=== PATIENT | female | born 1955 | race Caucasian/White ===

== ENCOUNTER 2017-03-06 15:34 | Inpatient (IN) | payer OTHER, MEDICARE ==
[~2017-03-06] VITALS: Ht 165.1 cm; Wt 79.6 kg
[~2017-03-06 15:34] MED LIST: AMBIEN5 MG PO; BENICAR20 MG PO; CYMBALTA60 MG PO; Cymbalta PO; DAILY VITAMIN1 EAC8 PO; DIOVAN80 MG PO; LODINE500 MG PO; PRILOSEC40 MG PO; VICODIN 5-3001 EACH PO; WELLBUTRIN XL300 MG PO; XANAX0.5 MG PO; ZOFRAN4 MG PO
[2017-03-06 16:32] LABS: HEMATOCRIT 37.4 % (36.0-46.0); MCH 24.5 PG (29.0-34.0); MCHC 32.4 G/DL (30.0-36.0); MCV 75.7 FL (83-99); MEAN PLAT.VOLUME 8.5 uM^3 (9.5-12.4); PLATELET COUNT 613 K/uL (156-360); RBC DIS.WIDTH-CV 17.2 % (11.8-14.6); RBC DIS.WIDTH-SD 46.6 % (39-53); RED BLOOD COUNT 4.94 M/uL (3.80-5.20)
[2017-03-06 16:32] LABS: CREATININE 4.1 mg/dL (0.6-1.3); POTASSIUM 4.3 mEq/L (3.7-5.4)
[2017-03-06 16:44] LABS: CHLORIDE 88 mEq/L (99-109); POTASSIUM 4.3 mEq/L (3.7-5.4)
[2017-03-06 16:47] LABS: INTER. NORMALIZED RATIO 1.1; PROTHROMBIN TIME 10.9 (9.2-11.2); SODIUM 121 mEq/L (136-147)
[2017-03-06 16:48] LABS: ANION GAP 19 MEQ/L (2-14); TOTAL BILIRUBIN 1.1 mg/dL (0.0-1.0)
[2017-03-06 16:50] LABS: ALKALINE PHOSPHATASE 85 IU/L (3-129)
[2017-03-06 16:51] LABS: GFR ESTIMATE (CALCULATED) 12 mL/min/
[2017-03-06 16:52] LABS: DIRECT BILIRUBIN 0.4 mg/dL (0.0-0.3); UREA NITROGEN (BUN) 31 mg/dL (9-23)
[2017-03-06 16:54] LABS: LIPASE 95 U/L (1.0-51.0)
[2017-03-06 17:05] LABS: TROP-I INTERPRETATION NEGATIVE; TROPONIN-I < 0.01 ng/mL (0.0-0.30)
[2017-03-06 17:07] LABS: GLUCOSE 135 mg/dL (70-99)
[2017-03-06] MEDS ORDERED: PROTONIX40 MG PO (18:38)
[2017-03-06] MEDS ORDERED: METRONIDAZOLE250 MG PO (18:39)
[2017-03-06] MEDS ORDERED: VALTREX50 MG/ML PO (18:39)
[2017-03-06] MEDS ORDERED: LIDOCAINE-PRIL1 EACH TP (18:40)
[2017-03-06 22:58] VITALS: BP 117/62
[2017-03-06 23:09] VITALS: BP 117/62
[2017-03-07 00:44] LABS: CHLORIDE 104 mEq/L (99-109); POTASSIUM 4.3 mEq/L (3.7-5.4); SODIUM 125 mEq/L (136-147)
[2017-03-07 00:46] LABS: GLUCOSE 102 mg/dL (70-99)
[2017-03-07 00:47] LABS: ANION GAP 9 MEQ/L (2-14)
[2017-03-07 00:49] LABS: GFR ESTIMATE (CALCULATED) 21 mL/min/
[2017-03-07 00:50] LABS: UREA NITROGEN (BUN) 28 mg/dL (9-23)
[2017-03-07 01:07] LABS: C DIFF TOXIN ND (NEGATIVE)
[2017-03-07 01:09] LABS: INTERNAL CONTROL VALID? YES
[2017-03-07 01:10] LABS: BASE EXCESS -11.9 mEq/L (-3 to +3); BICARBONATE 13.3 mEq/L (22-26); CARBOXY HGB 1.2 % (0-5); COMMENTS - BLOOD GASES C+A+; FI02 21 %; METHEMOGLOBIN 1.5 % (0-1.5); O2 FLOW 0 L/MIN; PCO2 27 mm Hg (35-45); PO2 80 mm Hg (80-100); SITE RR
[2017-03-07 04:00] VITALS: BP 93/55
[2017-03-07 07:03] LABS: ALKALINE PHOSPHATASE 54 IU/L (3-129); ANION GAP 12 MEQ/L (2-14); CHLORIDE 100 MEQ/L (99-109); GLUCOSE 106 mg/dL (70-99); POTASSIUM 4.4 MEQ/L (3.7-5.4); SAMPLE HEMOLYSIS CHECK 0; SAMPLE ICTERIC CHECK 0; SAMPLE LIPEMIA CHECK 0; SODIUM 125 MEQ/L (136-147); TOTAL BILIRUBIN 0.5 MG/DL (0.0-1.0); UREA NITROGEN (BUN) 26 mg/dL (9-23)
[2017-03-07 07:09] LABS: GFR ESTIMATE (CALCULATED) 27 mL/min/
[2017-03-07 07:20] LABS: HEMATOCRIT 25.1 % (36.0-46.0); MCH 24.9 PG (29.0-34.0); MCHC 31.9 G/DL (30.0-36.0); MCV 78.2 FL (83-99); PLAT.SUFFICIENCY INCREASED; PLATELET CLUMPS PRESENT - PLATELET COUNT APPEARS INCREASED; PLATELET COUNT UNABLE TO REPORT K/uL (156-360); RBC DIS.WIDTH-SD 48.6 % (39-53); RED BLOOD COUNT 3.21 M/uL (3.80-5.20); WHITE BLOOD COUNT 8.6 K/uL (4.1-10.2)
[2017-03-07 07:53] VITALS: BP 98/64
[2017-03-07 08:16] LABS: BASE EXCESS -12.3 mEq/L (-3 to +3); BICARBONATE 12.8 mEq/L (22-26); CARBOXY HGB 1.3 % (0-5); PCO2 26 mm Hg (35-45); PO2 89 mm Hg (80-100); SITE RR
[2017-03-07 08:18] LABS: COMMENTS - BLOOD GASES A+C+; FI02 0.21 %; TOTAL RESP RATE 12 resp/min
[2017-03-07 11:44] LABS: ADD MIUA? YES; BILIRUBIN NEGATIVE; BLOOD SMALL; COLOR YELLOW ((YELLOW)); GLUCOSE (STRIP) NEGATIVE; KETONES NEGATIVE; LEUKOCYTES NEGATIVE; NITRITE NEGATIVE; PROTEIN (STRIP) NEGATIVE; SPECIFIC GRAVITY 1.005 (1.000-1.030); UROBILINOGEN 0.2 MG/DL (0.2-1.0)
[2017-03-07 11:48] LABS: HEMATOCRIT 27.3 % (36.0-46.0); MCH 24.9 PG (29.0-34.0); MCHC 31.5 G/DL (30.0-36.0); MCV 79.1 FL (83-99); MEAN PLAT.VOLUME 8.8 uM^3 (9.5-12.4); RBC DIS.WIDTH-CV 17.2 % (11.8-14.6); RBC DIS.WIDTH-SD 49.5 % (39-53); RED BLOOD COUNT 3.45 M/uL (3.80-5.20); WHITE BLOOD COUNT 10.3 K/uL (4.1-10.2)
[2017-03-07 11:53] LABS: BACTERIA RARE /HPF; EPITHELIAL CELLS RARE /HPF; MUCUS TRACE /LPF; RED BLOOD CELLS 0-5 /HPF (0-5); UCUL ADDED? NO; WHITE BLOOD CELLS 0-5 /HPF (0-5)
[2017-03-07 11:57] LABS: PLATELET COUNT 396 K/uL (156-360)
[2017-03-07 12:11] LABS: ANION GAP 9 MEQ/L (2-14); CHLORIDE 100 MEQ/L (99-109); GFR ESTIMATE (CALCULATED) 32 mL/min/; GLUCOSE 101 mg/dL (70-99); POTASSIUM 4.4 MEQ/L (3.7-5.4); SAMPLE HEMOLYSIS CHECK 0; SAMPLE ICTERIC CHECK 0; SAMPLE LIPEMIA CHECK 0; SODIUM 124 MEQ/L (136-147); UREA NITROGEN (BUN) 22 mg/dL (9-23)
[2017-03-07 13:08] VITALS: BP 134/61
[2017-03-07 17:15] VITALS: BP 124/59
[2017-03-07 18:36] LABS: ANION GAP 10 MEQ/L (2-14); CHLORIDE 99 MEQ/L (99-109); GFR ESTIMATE (CALCULATED) 44 mL/min/; GLUCOSE 122 mg/dL (70-99); SAMPLE HEMOLYSIS CHECK 1; SAMPLE ICTERIC CHECK 0; SAMPLE LIPEMIA CHECK 0; SODIUM 124 MEQ/L (136-147); UREA NITROGEN (BUN) 18 mg/dL (9-23)
[2017-03-07 18:40] LABS: POTASSIUM 3.8 MEQ/L (3.7-5.4)
[2017-03-07 19:15] VITALS: BP 123/60
[2017-03-08 00:10] VITALS: BP 108/63
[2017-03-08 01:19] LABS: CHLORIDE 99 mEq/L (99-109); POTASSIUM 3.3 mEq/L (3.7-5.4); SODIUM 127 mEq/L (136-147)
[2017-03-08 01:21] LABS: GLUCOSE 102 mg/dL (70-99)
[2017-03-08 01:22] LABS: ANION GAP 10 MEQ/L (2-14)
[2017-03-08 01:25] LABS: GFR ESTIMATE (CALCULATED) > 59 mL/min/; UREA NITROGEN (BUN) 13 mg/dL (9-23)
[2017-03-08 04:46] VITALS: BP 110/58
[2017-03-08 05:59] LABS: HEMATOCRIT 25.4 % (36.0-46.0); MCH 24.8 PG (29.0-34.0); MCHC 32.7 G/DL (30.0-36.0); MCV 75.8 FL (83-99); MEAN PLAT.VOLUME 8.5 uM^3 (9.5-12.4); PLATELET COUNT 393 K/uL (156-360); RBC DIS.WIDTH-CV 17.1 % (11.8-14.6); RED BLOOD COUNT 3.35 M/uL (3.80-5.20); WHITE BLOOD COUNT 7.6 K/uL (4.1-10.2)
[2017-03-08 06:23] LABS: ANION GAP 9 MEQ/L (2-14); CHLORIDE 97 MEQ/L (99-109); GFR ESTIMATE (CALCULATED) > 59 mL/min/; GLUCOSE 93 mg/dL (70-99); MAGNESIUM 1.4 mg/dl (1.3-2.7); POTASSIUM 3.3 MEQ/L (3.7-5.4); SAMPLE HEMOLYSIS CHECK 0; SAMPLE ICTERIC CHECK 0; SAMPLE LIPEMIA CHECK 0; SODIUM 128 MEQ/L (136-147); UREA NITROGEN (BUN) 13 mg/dL (9-23)
[2017-03-08 07:05] VITALS: BP 101/56
[2017-03-08 08:03] LABS: ERTH.SED.RATE 37 MM/HR (0-30)
[2017-03-08 09:42] VITALS: BP 102/66
[2017-03-08 14:24] LABS: ANION GAP 10 MEQ/L (2-14); CHLORIDE 95 MEQ/L (99-109); GFR ESTIMATE (CALCULATED) > 59 mL/min/; GLUCOSE 100 mg/dL (70-99); POTASSIUM 3.4 MEQ/L (3.7-5.4); SAMPLE HEMOLYSIS CHECK 0; SAMPLE ICTERIC CHECK 0; SAMPLE LIPEMIA CHECK 0; SODIUM 130 MEQ/L (136-147); UREA NITROGEN (BUN) 9 mg/dL (9-23)
[2017-03-08 14:55] VITALS: BP 117/64
[2017-03-08 19:03] LABS: ANION GAP 9 MEQ/L (2-14); CHLORIDE 96 MEQ/L (99-109); GFR ESTIMATE (CALCULATED) > 59 mL/min/; GLUCOSE 100 mg/dL (70-99); POTASSIUM 3.5 MEQ/L (3.7-5.4); SAMPLE HEMOLYSIS CHECK 0; SAMPLE ICTERIC CHECK 0; SAMPLE LIPEMIA CHECK 0; SODIUM 130 MEQ/L (136-147); UREA NITROGEN (BUN) 10 mg/dL (9-23)
[2017-03-08 19:30] VITALS: BP 126/60
[2017-03-08 22:14] LABS: C DIFF TOXIN NEGATIVE (NEGATIVE)
[2017-03-08 22:18] LABS: PROBE CHECK PASS; SPECIMEN PROCESSING CONTROL PASS
[2017-03-09 00:07] VITALS: BP 130/69
[2017-03-09 03:30] VITALS: BP 113/58
[2017-03-09 06:05] LABS: HEMATOCRIT 24.2 % (36.0-46.0); MCH 24.5 PG (29.0-34.0); MCHC 32.2 G/DL (30.0-36.0); MCV 76.1 FL (83-99); MEAN PLAT.VOLUME 8.7 uM^3 (9.5-12.4); PLATELET COUNT 394 K/uL (156-360); RBC DIS.WIDTH-SD 47.7 % (39-53); RED BLOOD COUNT 3.18 M/uL (3.80-5.20); WHITE BLOOD COUNT 7.5 K/uL (4.1-10.2)
[2017-03-09 06:22] LABS: ANION GAP 6 MEQ/L (2-14); CHLORIDE 96 MEQ/L (99-109); GFR ESTIMATE (CALCULATED) > 59 mL/min/; GLUCOSE 99 mg/dL (70-99); MAGNESIUM 1.8 mg/dl (1.3-2.7); POTASSIUM 3.6 MEQ/L (3.7-5.4); SAMPLE HEMOLYSIS CHECK 0; SAMPLE ICTERIC CHECK 0; SAMPLE LIPEMIA CHECK 0; SODIUM 133 MEQ/L (136-147); UREA NITROGEN (BUN) 6 mg/dL (9-23)
[2017-03-09 07:20] VITALS: BP 112/63
[2017-03-09 14:24] VITALS: BP 121/65
[2017-03-09 16:30] VITALS: BP 122/69
[2017-03-09 23:51] VITALS: BP 106/74
[2017-03-10 06:29] LABS: ANION GAP 9 MEQ/L (2-14); CHLORIDE 93 MEQ/L (99-109); GFR ESTIMATE (CALCULATED) > 59 mL/min/; GLUCOSE 200 mg/dL (70-99); POTASSIUM 4.3 MEQ/L (3.7-5.4); SAMPLE HEMOLYSIS CHECK 0; SAMPLE ICTERIC CHECK 0; SAMPLE LIPEMIA CHECK 0; SODIUM 132 MEQ/L (136-147); UREA NITROGEN (BUN) 9 mg/dL (9-23)
[2017-03-10 06:45] LABS: HEMATOCRIT 26.7 % (36.0-46.0); MCH 24.1 PG (29.0-34.0); MCHC 31.5 G/DL (30.0-36.0); MCV 76.5 FL (83-99); MEAN PLAT.VOLUME 8.7 uM^3 (9.5-12.4); PLATELET COUNT 468 K/uL (156-360); RBC DIS.WIDTH-CV 17.4 % (11.8-14.6); RED BLOOD COUNT 3.49 M/uL (3.80-5.20)
[2017-03-10 06:51] LABS: ABS NEUTROPHIL COUNT 4.3; BAND NEUTROPHILS 7.1 % (0-8.0); EOSINOPHIL ABS CT 0; HYPOCHROMASIA 1+; INSTRUMENT ABS NEUTROPHIL CT 3.9 K/uL; LYMPHOCYTES 7.1 % (15.0-45.0); METAMYELOCYTES 0.9 %; MICROCYTOSIS 1+; NUCLEATED RBC'S 0.9; PLAT.SUFFICIENCY INCREASED; POIKILOCYTOSIS 1+
[2017-03-10 07:10] LABS: WHITE BLOOD COUNT 4.7 K/uL (4.1-10.2)
[2017-03-10 07:56] VITALS: BP 137/81
[2017-03-10] MEDS ORDERED: LOPERAMIDE2 MG PO (13:31)
[2017-03-10] MEDS ORDERED: DELZICOL400 M1 PO (13:33)
[2017-03-10] MEDS ORDERED: PREDNISONE20 MG PO (13:33)
== END 2017-03-10 14:29 | disposition home or self-care (01) | DRG 872 ==
LOC: EME 15:34 → 5SOUTH 19:55 → 4EAST 19:55 → EDOF 19:55 → 4EAST 22:12 → 5SOUTH 03-09 16:53
PROVIDERS: Emergency Medicine; Hospitalist; Internal Medicine; Internal Medicine Gastroenterology; Student in an Organized Health Care Education/Training Program
DX: A41.9 Sepsis, unspecified organism (principal); A09 Infectious gastroenteritis and colitis, unspecified; K52.9 Noninfective gastroenteritis and colitis, unspecified; K55.9 Vascular disorder of intestine, unspecified; N17.9 Acute kidney failure, unspecified; E87.1 Hypo-osmolality and hyponatremia; E87.2 Acidosis; E86.0 Dehydration; I95.9 Hypotension, unspecified; R60.9 Edema, unspecified; R65.20 Severe sepsis without septic shock; I10 Essential (primary) hypertension; K21.9 Gastro-esophageal reflux disease without esophagitis; D50.9 Iron deficiency anemia, unspecified; G89.4 Chronic pain syndrome; F32.9 Major depressive disorder, single episode, unspecified; Z85.3 Personal history of malignant neoplasm of breast
CPT/HCPCS: 36430; 36600; 71010; 74176; 80047; 80048; 80048 91; 80053; 80076; 81003; 82140; 82803; 82941 90; 83516 90; 83605; 83630; 83690; 83735; 83880; 84443; 84484; 84586 90; 85025; 85027; 85610; 85651; 86900; 86901; 86920; 86999; 87040; 87177; 87329; 87493; 87506; 88305; 93005; 96372; 99281; 99285; J0744; J1644; J1940; J2250; J2270; J2405; J2543; J2930; J3420; J3475; J7030; J7050; P9016; S0030

== ENCOUNTER → 2017-03-26 | Outpatient (CLI) | payer OTHER, MEDICARE ==
[~2017-03-26] MED LIST changes: +DELZICOL400 M1 PO; +LIDOCAINE-PRIL1 EACH TP; +LOPERAMIDE2 MG PO; +METRONIDAZOLE250 MG PO; +PREDNISONE20 MG PO; +PROTONIX40 MG PO; +VALTREX50 MG/ML PO
== END | disposition home or self-care (01) ==
LOC: EKG 12:09 → NUC 13:00
DX: R06.02 Shortness of breath (principal)
CPT/HCPCS: 71020; 78582; 93005; A9540; A9567

== ENCOUNTER → 2017-08-05 | Outpatient (CLI) | payer OTHER, MEDICARE | END | disposition home or self-care (01) | LOC: NUC 06:32 | DX: K21.9 Gastro-esophageal reflux disease without esophagitis (principal); K44.9 Diaphragmatic hernia without obstruction or gangrene | CPT/HCPCS: 78264; A9541 ==

== ENCOUNTER 2017-08-26 06:26 | Inpatient (IN) | payer OTHER, MEDICARE ==
[~2017-08-26] VITALS: Ht 160 cm; Wt 69.4 kg
[~2017-08-26 06:26] MED LIST changes: +DAILY MULTIPLE1 EACH PO; +LIALDA1.2 GM PO; +VITAMIN D2000 UNIT PO
[2017-08-26 07:22] VITALS: BP 143/73
[2017-08-26 14:15] VITALS: BP 118/77
[2017-08-26 14:20] VITALS: BP 138/76
[2017-08-26 19:13] VITALS: BP 121/72
[2017-08-26 23:22] VITALS: BP 122/67
[2017-08-27 07:44] VITALS: BP 140/80
[2017-08-27 08:14] LABS: EOSINOPHIL (%) 0.2 % (0-5); HEMATOCRIT 29.2 % (36.0-46.0); IMMATURE GRANULOCYTE (%) 0.3 % (0.0-0.7); INSTRUMENT ABS NEUTROPHIL CT 6.2 K/uL; LYMPHOCYTE COUNT 1.6 K/uL (1.0-2.8); MCH 27.5 PG (29.0-34.0); MCHC 32.5 G/DL (30.0-36.0); MCV 84.4 FL (83-99); MEAN PLAT.VOLUME 7.9 uM^3 (9.5-12.4); MONOCYTE COUNT 1.3 K/uL (0-0.8); NEUTROPHIL (%) 68.1 % (45-76); NEUTROPHIL COUNT 6.2 K/uL (1.8-6.4); RBC DIS.WIDTH-CV 15.1 % (11.8-14.6); RBC DIS.WIDTH-SD 46.5 % (39-53); RED BLOOD COUNT 3.46 M/uL (3.80-5.20); WHITE BLOOD COUNT 9.1 K/uL (4.1-10.2)
[2017-08-27 08:30] LABS: PLATELET COUNT 302 K/uL (156-360)
[2017-08-27 08:37] LABS: ANION GAP 8 MEQ/L (2-14); CHLORIDE 98 MEQ/L (99-109); POTASSIUM 4.1 MEQ/L (3.7-5.4); SAMPLE HEMOLYSIS CHECK 0; SAMPLE ICTERIC CHECK 0; SAMPLE LIPEMIA CHECK 0; SODIUM 134 MEQ/L (136-147)
[2017-08-27 08:42] LABS: ALKALINE PHOSPHATASE 64 IU/L (3-129); GFR ESTIMATE (CALCULATED) > 59 mL/min/; GLUCOSE 104 mg/dL (70-99); UREA NITROGEN (BUN) 7 mg/dL (9-23)
[2017-08-27 08:49] LABS: TOTAL BILIRUBIN 0.4 MG/DL (0.0-1.0)
[2017-08-27] MEDS ORDERED: PREVACID SOLUTA30 MG PO (10:45)
[2017-08-27] MEDS ORDERED: DILAUDID2 MG PO (10:45)
[2017-08-27] MEDS ORDERED: WELLBUTRIN SR150 MG PO (10:45)
== END 2017-08-27 11:26 | disposition home or self-care (01) | DRG 328 ==
LOC: SDC 06:26 → 2SOUTH 09:13 → ENRESERV 13:22 → 2EAST 14:16 → SDC 14:37 → EDSTATUS 15:37 → 2SOUTH 15:37 → SDC 15:37 → 2EAST 08-27 11:26
PROVIDERS: Surgery
DX: K44.9 Diaphragmatic hernia without obstruction or gangrene (principal); K21.9 Gastro-esophageal reflux disease without esophagitis; I10 Essential (primary) hypertension; D50.9 Iron deficiency anemia, unspecified; F32.9 Major depressive disorder, single episode, unspecified; Z98.1 Arthrodesis status; Z85.3 Personal history of malignant neoplasm of breast
CPT/HCPCS: 36415; 80053; 81003; 85025; 88302; C9113; J0131; J0330; J1100; J1170; J1650; J2405; J2710; J3010; J7120; Q0175